=== PATIENT | male | born 1940 | race Caucasian/White ===

== ENCOUNTER 2018-04-17 09:43 | Emergency (ER) | payer OTHER ==
--- NOTE | 2018-04-17 10:12 | EDPHY ---
HPI/HX/ROS/PE/MDM Narrative: CHIEF COMPLAINT: Fall, head injury HPI: This is a 77 y/o male who arrives with his complaining of a scalp wound secondary to a slip and fall on ice this morning. He denies loss of consciousness, weakness, paresthesias, or other trauma. He is currently being treated for skin cancer on his scalp at the same site of the partially resected skin lesion. He does not use anticoagulants or aspirin. REVIEW OF SYSTEMS: A comprehensive 10 system review of systems is otherwise negative aside from elements mentioned in the history of present illness. PMH: Skin cancer SOCIAL HISTORY: at bedside. Lives in [place]. Retired. PHYSICAL EXAM: General:Patient is alert, in no acute distress. Head: Complex abrasion vs. skin tear measuring approximately 6cm on occiput. ENT:Eyes are normal to inspection. ENT inspection normal. Neck: Normal inspection. Full range of motion. Respiratory:No respiratory distress. Breath sounds normal bilaterally. Cardiovascular: Regular rate and rhythm. Strong peripheral pulses. Normal cap refill. Abdomen:The abdomen is nontender to palpation. There are no peritoneal signs. Back: Normal to inspection. No tenderness to palpation. Skin: Normal color. No rash. Warm and dry. Extremities: Normal appearance. Full range of motion. Neuro: Oriented x3. Normal motor function. Normal sensory function. ED Course: This is a 77 y/o male currently being treated for skin cancer on his scalp who presents with a scalp injury secondary to a slip and fall on ice this morning. He has a complex skin tear vs abrasion to his posterior scalp, but otherwise atraumatic exam. Nonfocal neuro exam. Plan for head CT to rule out intracranial injury and wound care. Injury does not appear suturable. Head CT: negative. Reassessed patient and discussed findings. He will be discharged home with standard wound care instructions. Return precautions discussed. He is comfortable with this plan. - Data Points Imaging Results: Imaging Impressions Head CT 04/17/18 10:12 Impression: 1. Mild age-related atrophy. 2. No hemorrhage, mass effect, or definite acute peripheral infarct. 3. Soft tissue contusion right posterior superior parietal bone without underlying fracture. If symptoms worsen, additional imaging may be necessary. Findings discussed with Jadiel Jones MD at 11:07 hour, 04/17/2018. Imaging: Discussed imaging studies w/ faculty i on call medical assistant Radiologist, I viewed and interpreted images myself General Initial Vital Signs: Initial Vital Signs Heart Rate 60 04/17/18 09:50 Respiratory Rate 18 04/17/18 09:50 Blood Pressure 193/77 H 04/17/18 09:50 O2 Sat (%) 98 04/17/18 09:50 O2 Delivery Mode Room Air Allergies/Adverse Reactions: No Known Allergies Allergy (Verified 04/17/18 09:54) Home Medications: Medication Instructions Recorded "2 Blood Pressure Medications" 05/22/10 FLUoxetine [Prozac] 20 mg PO DAILY 05/22/10 Departure - Departure Disposition: Home, Routine, Self-Care Clinical Impression: Scalp wound Qualifiers: Encounter type: initial encounter Open wound type: unspecified Qualified Code(s ): S01.00XA - Unspecified open wound of scalp, initial encounter Condition: Good Instructions: Skin Avulsion (ED) Additional Instructions: Follow up with your primary care provider and 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 Return to the ED for any worsening of condition. Referrals: Shubham Maier MD [place] [place] - As per Instructions Report Scribed for: Jadiel Jones Report Scribed by: Abigail Pugh Date of Report: 04/17/18 Time of Report: 10:12 Physician Review and Approval Statement: Portions of this note were transcribed by an ED scribe. I personally performed the history, physical exam, and medical decision making; and confirm the accuracy of the information in the transcribed note.
[2018-04-17 11:50] VITALS: BP 160/82
== END 2018-04-17 11:49 | disposition home or self-care (01) ==
DX: S01.00XA Unspecified open wound of scalp, initial encounter (principal); C44.40 Unspecified malignant neoplasm of skin of scalp and neck; W00.0XXA Fall on same level due to ice and snow, initial encounter; Y92.9 Unspecified place or not applicable; Y93.9 Activity, unspecified; Y99.9 Unspecified external cause status